=== PATIENT | female | born 1940 ===

== ENCOUNTER 2022-04-16 05:35 | Day surgery (SDC) | payer OTHER ==
[~2022-04-16 05:35] MED LIST: CLONAZEPAM2 MG PO
== END 2022-04-16 14:50 | disposition home or self-care (01) ==
LOC: CIR.AMB 05:35
PROVIDERS: ATTEND Colon & Rectal Surgery
DX: C21.8 Malignant neoplasm of overlapping sites of rectum, anus and anal canal (principal); Z20.822 Contact with and (suspected) exposure to COVID-19; K64.1 Second degree hemorrhoids; I10 Essential (primary) hypertension; E03.9 Hypothyroidism, unspecified